=== PATIENT | female | born 1990 | race Caucasian/White ===

== ENCOUNTER 2018-08-28 21:53 | Inpatient (IN) | payer BC, MEDICAID ==
[~2018-08-28 21:53] MED LIST: LEVEMIR FLEX100 U/ML SQ; MOTRIN 600600 MG/TAB PO; PERCOCET 325 MG1 TA2 PO
--- NOTE | 2018-08-28 21:55 | NUR ---
2154 HERE WITH SPOUSE BREATHING HARD WITH Q 3 MIN FIRM CTXS. SVE 7/100/-2. WANTS EPIDURAL GBS +. 2199 DR DUNN NOTIFIED. 2219 9100/-1 BBOW. IV START LR BOLUS. PEN G STARTED 2[address]CM [address] DUNN HERE AROM CLEAR. [address] DUNN NO EPIDURAL DUE TO RAPID PROGRESS
[2018-08-28 22:54] VITALS: BP 123/65; PULSE 93; TEMP 98
[2018-08-28 22:55] VITALS: BP 119/56; PULSE 84
[2018-08-28 23:10] VITALS: BP 134/58; PULSE 85
[2018-08-28 23:24] VITALS: BP 121/58; PULSE 73
[2018-08-28 23:26] LABS: BASO % 0.2 % (0.0-2.0); EOS # 0.1 (0.0-0.7); EOS % 0.4 % (0-4.0); GRAN # 7.7 (1.4-6.5); HEMATOCRIT 37.2 % (37.0-47.0); LYMPH # 3.5 (1.2-3.4); LYMPH % 28.6 % (20.0-51.0); MEAN CELL VOLUME 87 fl (80.0-100.0); MEAN CORPUSCULAR HEMOGLOBIN 28 pg (27.0-31.0); MEAN CORPUSCULAR HGB CONC 32 g/dl (33.0-37.0); MEAN PLATELET VOLUME 11.3 fl (7.4-10.4); MONO # 0.8 (0.1-0.6); MONO % 6.9 % (1.7-9.3); PLATELET COUNT 153 K/mm3 (130-400); RED BLOOD COUNT 4.27 M/mm3 (4.10-5.30); REDCELL DISTRIBUTION WIDTH-CV 13.9 % (11.5-14.5)
[2018-08-28 23:40] VITALS: BP 124/70; PULSE 80
[2018-08-29] VITALS (9 sets, daily range): BP systolic 117–138; BP diastolic 54–80; PULSE 70–87; TEMP 97.6–98.4
[2018-08-29] MEDS ORDERED: PRENATAL FORMU1 EAC3 PO (02:33)
[2018-08-30 07:57] VITALS: BP 128/57; PULSE 72; TEMP 98.1
--- NOTE | 2018-08-30 08:43 | NUR ---
Initial visit; Mom thanked for offering congratulations for the of her son. thanked Sofya for choosing [facility].
[2018-08-30] MEDS ORDERED: MOTRIN 600600 MG/TAB PO (09:03)
[2018-08-30 16:29] VITALS: BP 134/82; PULSE 86; TEMP 98.2
== END 2018-08-30 21:30 | disposition home or self-care (01) | DRG 807 ==
LOC: LDRO 21:53 → OB 22:00 → LDR 22:00 → OB 08-29 00:30
PROVIDERS: Obstetrics & Gynecology; ADMIT Student in an Organized Health Care Education/Training Program
PROC: 10E0XZZ Delivery of Products of Conception, External Approach (ICD-10-PCS; principal; 2018-08-28)
PROC: 0W8NXZZ Division of Female Perineum, External Approach (ICD-10-PCS; 2018-08-28)
DX: O48.0 Post-term pregnancy (principal); Z37.0 Single live birth; Z3A.40 40 weeks gestation of pregnancy; O35.8XX0 Maternal care for other (suspected) fetal abnormality and damage, not applicable or unspecified
CPT/HCPCS: J2540; J7120